=== PATIENT | female | born 1990 | race Caucasian/White ===

== ENCOUNTER 2017-05-28 16:26 | Inpatient (IN) | payer OTHER ==
[~2017-05-28] VITALS: Ht 175.3 cm; Wt 86.0 kg
[~2017-05-28 16:26] MED LIST: Budeprion Sr150 MG; Eye Drops15 ML; HYDR1TAB94 PO
[2017-05-28] MEDS ORDERED: RANI150 PO (17:45)
[2017-05-28] MEDS ORDERED: Verotin-Gr Cap1 EACH PO (17:45)
[2017-05-28] MEDS ORDERED: FOLI1 PO (17:46)
[2017-05-28 17:55] LABS: BASOPHILS ABSOLUTE AUTO 0.03 K/mm3 (0.00-0.23); BASOPHILS PERCENT AUTO 0 % (0-2); EOSINOPHILS ABSOLUTE AUTO 0.11 K/mm3 (0.00-0.68); EOSINOPHILS PERCENT AUTO 1 % (0-6); Hematocrit 40.3 % (33.0-51.0); Hemoglobin 13.7 g/dL (11.5-16.0); IMMATURE GRAN ABSOLUTE AUTO 0.07 K/mm3 (0.00-0.10); IMMATURE GRAN PERCENT AUTO 0 % (0-1); LYMPHOCYTES ABSOLUTE AUTO 1.69 K/mm3 (0.84-5.20); LYMPHOCYTES PERCENT AUTO 10 % (21-46); MONOCYTES ABSOLUTE AUTO 1.04 K/mm3 (0.16-1.47); MONOCYTES PERCENT AUTO 6 % (4-13); Mean Corpuscular HGB 28.7 pg (26.0-34.0); Mean Corpuscular Volume 84 fL (80-100); Mean Platelet Volume 11.3 fL (9.1-12.4); NEUTROPHILS ABSOLUTE AUTO 13.29 K/mm3 (1.96-9.15); NEUTROPHILS PERCENT AUTO 82 % (41-73); Platelet Count 230 K/mm3 (150-400); RDW Coefficient Variation 13.8 % (11.7-14.2); RDW Standard Deviation 41.9 fL (35.1-46.3); Red Blood Cell Count 4.78 M/mm3 (3.80-5.20); White Blood Cell Count 16.23 K/mm3 (4.00-11.30)
--- NOTE | 2017-05-29 03:17 | NUR ---
Epidural cont rate increased to 11 per hour at 2241 per orders, while pt was in labor due to increased pain.
[2017-05-29 05:58] LABS: BASOPHILS ABSOLUTE AUTO 0.03 K/mm3 (0.00-0.23); BASOPHILS PERCENT AUTO 0 % (0-2); EOSINOPHILS ABSOLUTE AUTO 0.06 K/mm3 (0.00-0.68); EOSINOPHILS PERCENT AUTO 0 % (0-6); Hematocrit 34.6 % (33.0-51.0); Hemoglobin 11.5 g/dL (11.5-16.0); IMMATURE GRAN ABSOLUTE AUTO 0.08 K/mm3 (0.00-0.10); IMMATURE GRAN PERCENT AUTO 0 % (0-1); LYMPHOCYTES ABSOLUTE AUTO 2.03 K/mm3 (0.84-5.20); LYMPHOCYTES PERCENT AUTO 10 % (21-46); MONOCYTES ABSOLUTE AUTO 1.66 K/mm3 (0.16-1.47); MONOCYTES PERCENT AUTO 8 % (4-13); Mean Corpuscular HGB 28.5 pg (26.0-34.0); Mean Corpuscular HGB Conc 33.2 g/dL (31.5-36.5); Mean Corpuscular Volume 86 fL (80-100); Mean Platelet Volume 11.1 fL (9.1-12.4); NEUTROPHILS PERCENT AUTO 80 % (41-73); Platelet Count 202 K/mm3 (150-400); RDW Coefficient Variation 13.8 % (11.7-14.2); Red Blood Cell Count 4.04 M/mm3 (3.80-5.20); White Blood Cell Count 19.76 K/mm3 (4.00-11.30)
--- NOTE | 2017-05-30 07:15 | NUR ---
MOM SITTING UP IN BED, STATES PAIN IS CONTROLLED WELL WITH TORADOL. HOLDING NB, LOVING TOWARDS NB, AT SIDE, SUPPORTIVE. PLAN TO GO HOME LATER TONIGHT OR TOMORROW.
[2017-05-30] MEDS ORDERED: IBUP800 PO (17:33)
[2017-05-30] MEDS ORDERED: Percocet 5-3251 EACH PO (17:33)
--- NOTE | 2017-05-30 18:45 | NUR ---
ALL DC TEACHING DONE, ALL QUESTIONS ANSWERED. MOM FEEDING NB, THEN DC HOME.
== END 2017-05-30 18:40 | disposition home or self-care (01) | DRG 775 ==
LOC: OBS 16:26 → BC 16:30 → OBS 17:13 → BC 17:14
PROVIDERS: ADMIT Nurse Practitioner Obstetrics & Gynecology
PROC: 10E0XZZ Delivery of Products of Conception, External Approach (ICD-10-PCS; principal; 2017-05-28)
PROC: 10907ZC Drainage of Amniotic Fluid, Therapeutic from Products of Conception, Via Natural or Artificial Opening (ICD-10-PCS; 2017-05-28)
PROC: 0HQ9XZZ Repair Perineum Skin, External Approach (ICD-10-PCS; 2017-05-28)
DX: O99.824 Streptococcus B carrier state complicating childbirth (principal); Z37.0 Single live birth; Z3A.39 39 weeks gestation of pregnancy; O70.0 First degree perineal laceration during delivery
CPT/HCPCS: 36415; 51702; 81003; 85025; 88307; J0290; J1885; J2210; J2405; J2590; J3010; J7120

== ENCOUNTER 2019-12-23 09:15 | Inpatient (IN) | payer OTHER ==
[~2019-12-23] VITALS: Ht 172.7 cm; Wt 89.3 kg
[~2019-12-23 09:15] MED LIST changes: +FOLI1 PO; +IBUP800 PO; +Percocet 5-3251 EACH PO; +RANI150 PO; +Verotin-Gr Cap1 EACH PO
[2019-12-23 09:57] LABS: BASOPHILS ABSOLUTE AUTO 0.07 K/mm3 (0.00-0.23); BASOPHILS PERCENT AUTO 1 % (0-2); EOSINOPHILS ABSOLUTE AUTO 0.06 K/mm3 (0.00-0.68); EOSINOPHILS PERCENT AUTO 1 % (0-6); Hematocrit 39.8 % (33.0-51.0); Hemoglobin 13.1 g/dL (11.5-16.0); IMMATURE GRAN ABSOLUTE AUTO 0.05 K/mm3 (0.00-0.10); IMMATURE GRAN PERCENT AUTO 1 % (0-1); LYMPHOCYTES ABSOLUTE AUTO 2.09 K/mm3 (0.84-5.20); LYMPHOCYTES PERCENT AUTO 20 % (21-46); MONOCYTES ABSOLUTE AUTO 0.89 K/mm3 (0.16-1.47); MONOCYTES PERCENT AUTO 8 % (4-13); Mean Corpuscular HGB 27.8 pg (26.0-34.0); Mean Corpuscular HGB Conc 32.9 g/dL (31.5-36.5); Mean Corpuscular Volume 84 fL (80-100); Mean Platelet Volume 11.3 fL (9.1-12.4); NEUTROPHILS ABSOLUTE AUTO 7.45 K/mm3 (1.96-9.15); NEUTROPHILS PERCENT AUTO 70 % (41-73); Platelet Count 222 K/mm3 (150-400); RDW Coefficient Variation 15.5 % (11.7-14.2); RDW Standard Deviation 47.4 fL (35.1-46.3); Red Blood Cell Count 4.72 M/mm3 (3.80-5.20); White Blood Cell Count 10.61 K/mm3 (4.00-11.30)
[2019-12-23] MEDS ORDERED: FOLI400 (10:09)
[2019-12-23] MEDS ORDERED: Vitamin D2000 UNIT (10:09)
[2019-12-23] MEDS ORDERED: IRON18 MG (10:09)
[2019-12-23] MEDS ORDERED: BIOTIN1 MG (10:10)
[2019-12-23] MEDS ORDERED: PYRI100 (10:10)
[2019-12-23] MEDS ORDERED: ASCO500 (10:10)
[2019-12-23] MEDS ORDERED: FISH OIL 1,0001 EAC7 (10:10)
[2019-12-24 05:46] LABS: BASOPHILS ABSOLUTE AUTO 0.07 K/mm3 (0.00-0.23); BASOPHILS PERCENT AUTO 1 % (0-2); EOSINOPHILS ABSOLUTE AUTO 0.08 K/mm3 (0.00-0.68); EOSINOPHILS PERCENT AUTO 1 % (0-6); Hematocrit 35.6 % (33.0-51.0); Hemoglobin 11.3 g/dL (11.5-16.0); IMMATURE GRAN ABSOLUTE AUTO 0.06 K/mm3 (0.00-0.10); IMMATURE GRAN PERCENT AUTO 1 % (0-1); LYMPHOCYTES ABSOLUTE AUTO 2.61 K/mm3 (0.84-5.20); LYMPHOCYTES PERCENT AUTO 20 % (21-46); MONOCYTES ABSOLUTE AUTO 1.25 K/mm3 (0.16-1.47); MONOCYTES PERCENT AUTO 10 % (4-13); Mean Corpuscular HGB 27.4 pg (26.0-34.0); Mean Corpuscular HGB Conc 31.7 g/dL (31.5-36.5); Mean Corpuscular Volume 86 fL (80-100); Mean Platelet Volume 11.5 fL (9.1-12.4); NEUTROPHILS ABSOLUTE AUTO 9.12 K/mm3 (1.96-9.15); NEUTROPHILS PERCENT AUTO 69 % (41-73); Platelet Count 197 K/mm3 (150-400); RDW Coefficient Variation 15.6 % (11.7-14.2); Red Blood Cell Count 4.13 M/mm3 (3.80-5.20); White Blood Cell Count 13.19 K/mm3 (4.00-11.30)
--- NOTE | 2019-12-24 09:15 | NUR ---
RN ROUNDED TO HELP W/ . PT HAS NB LATCHED AND FEEDING WELL. PT REPORTS THAT IS GOING WELL. PT IS EXPERIENCED MOM. RN INSTRUCTED PT IN CORRECT POSITIONING, NIPPLE SHAPE AFTER FEEDS AND FEEDING ON DEMAND. PT VERBALIZED UNDERSTANDING AND DENIES ANY FURTHER QUESTIONS OR CONCERNS.
[2019-12-24] MEDS ORDERED: Percocet 5-3251 EACH PO (11:42)
[2019-12-24] MEDS ORDERED: IBUP800 PO (11:42)
--- NOTE | 2019-12-24 22:44 | NUR ---
BANDS MATCHED WITH . MATERNAL TEACHING DONE ON DAY SHIFT. MOTHER DENIES ANY FURTHER QUESTION OR CONCERNS. IV OUT, WNL. DISCHARGED HOME WITH AND AT HER SIDE.
== END 2019-12-24 22:36 | disposition home or self-care (01) | DRG 807 ==
LOC: OBS 09:15 → BC 09:26
PROVIDERS: ADMIT Nurse Practitioner Obstetrics & Gynecology
PROC: 10E0XZZ Delivery of Products of Conception, External Approach (ICD-10-PCS; principal; 2019-12-24)
PROC: 00HU33Z Insertion of Infusion Device into Spinal Canal, Percutaneous Approach (ICD-10-PCS; 2019-12-24)
PROC: 3E0R3BZ Introduction of Anesthetic Agent into Spinal Canal, Percutaneous Approach (ICD-10-PCS; 2019-12-24)
DX: O99.824 Streptococcus B carrier state complicating childbirth (principal); Z37.0 Single live birth; Z3A.38 38 weeks gestation of pregnancy
CPT/HCPCS: 36415; 51702; 85025; 86850; 86900; 86901; J0290; J1885; J2210; J2590; J3010; J7120

== ENCOUNTER → 2020-05-10 | Outpatient (CLI) | payer OTHER ==
[~2020-05-10] MED LIST changes: +ASCO500; +BIOTIN1 MG; +FISH OIL 1,0001 EAC7; +FOLI400; +IRON18 MG; +PYRI100; +SERT50 PO; +Vitamin D2000 UNIT
== END | disposition home or self-care (01) ==
LOC: LAB SHORT 15:45 → PLD 15:45
DX: D22.5 Melanocytic nevi of trunk (principal)
CPT/HCPCS: 88305

== ENCOUNTER 2020-06-06 10:58 | Day surgery (SDC) | payer OTHER ==
[~2020-06-06] VITALS: Ht 172.7 cm; Wt 76.3 kg
== END 2020-06-06 12:35 | disposition home or self-care (01) ==
LOC: ORSCSDS 10:58
PROVIDERS: Internal Medicine Gastroenterology
PROC: 0DBK8ZX Excision of Ascending Colon, Via Natural or Artificial Opening Endoscopic, Diagnostic (ICD-10-PCS; principal; 2020-06-06 12:15)
DX: Z12.11 Encounter for screening for malignant neoplasm of colon (principal); D12.2 Benign neoplasm of ascending colon; K64.8 Other hemorrhoids; Z86.010 Personal history of colon polyps; Z87.891 Personal history of nicotine dependence
CPT/HCPCS: 88305; J2704; J7120

== ENCOUNTER 2022-06-06 09:12 | Day surgery (SDC) | payer OTHER ==
[~2022-06-06] VITALS: Ht 172.7 cm; Wt 82.9 kg
--- NOTE | 2022-06-06 12:08 | NUR ---
06/06/22 1208 Luis Funez PT REPORTED 5/10 BURNING PAIN IN STEP DOWN. DR. ADAMS NOTIFIED. PT OKAY TO DISCHARGE, PER DR. ADAMS. PT GIVEN 1 GM TYLENOL AND ADVISED TO USE OTC MEDICATION FOR PAIN RELIEF AT HOME, PER DR. ADAMS'S ORDERS. PT ADVISED TO FOLLOW DIRECTIONS ON OTC PAIN RELIEVER PACKAGING AT HOME . PAIN WAS REDUCED TO 3/10 UPON DISCHARGE. PT DESCRIBED THIS LEVEL TOLERABLE AND EXPRESSED READINESS TO RETURN HOME.
== END 2022-06-06 11:56 | disposition home or self-care (01) ==
LOC: ORSCSDS 09:12
PROVIDERS: Ophthalmology
PROC: 08DJ3ZZ Extraction of Right Lens, Percutaneous Approach (ICD-10-PCS; principal; 2022-06-06 10:30)
DX: H25.11 Age-related nuclear cataract, right eye (principal); H20.9 Unspecified iridocyclitis
CPT/HCPCS: A9270; J2001; J2250; J2704; J3010; J3301; V2632